=== PATIENT | male | born 1950 | race Caucasian/White ===

== ENCOUNTER 2023-12-21 07:57 | Outpatient (AMB) | payer MEDICARE, SELFPAY ==
--- NOTE | 2023-12-21 08:07 | A.OFFPC_ITS ---
Vital Signs 12/21/23 08:08 Height 5 ft 8 in Weight 164 lb BMI 24.9 BP 120/80 Blood Pressure Location Lt brachial Position Sitting Pulse 48 L Pulse Source Pulse Oximeter Pulse Oximetry (%) 97 Oxygen Delivery Method Room Air Intake Visit Reasons: [employer]ER-Cholesterol Allergies No Known Allergies Allergy (Verified 12/21/23 08:55) Medication List - Last Reconciled 12/21/23 by Leah Nguyen MD rosuvastatin 5 mg PO DAILY sildenafil mg PO Tobacco use date assessed: 12/21/23 Fall risk assessment: No Falls in past year Last assessed Fall Risk: 12/21/23 Dental Screening Dental Screen Date: 12/21/23 Did you have a dental visit in the last 12 months?: Yes Did you have a dental problem in the last 6 months where you did not have access to dental care?: Yes Was dental information given to patient?: Patient has dentist HPI [employer]ENDER-Cholesterol HPI Details Pt presents for RICE [employer]INE [employer]ENDER visit. Past medical history includes hyperlipidemia controlled on Crestor. [facility] Family History (Updated 12/21/23 @ 08:26 by Leah Nguyen MD) Mother S/P CABG x 4 Cancer, Onset Age: 70 Brother Heart attack Social History (Updated 12/21/23 @ 08:24 by Leah Nguyen MD) Household Members Other:: , retired, exercise 5 x week, Housing: House Patient Tobacco Use Status: Never used Tobacco e-Cigarette/Vaping Use: Never Used service: Yes Current occupational status: retired Cognitive needs: No Hearing needs: No Vision needs: Yes Questionnaire PHQ-9 Over the last 2 weeks, how often have you been bothered by any of the following problems? 1. Little interest or pleasure in doing things: not at all 2. Feeling down, depressed, or hopeless: not at all 3. Trouble falling or staying asleep, or sleeping too much: not at all 4. Feeling tired or having little energy: not at all 5. Poor appetite or overeating: not at all 6. Feeling bad about yourself - or that you are a failure or have let yourself or your family down: not at all 7. Trouble concentrating on things, such as reading the newspaper or watching television: not at all 8. Moving or speaking so slowly that other people could have noticed. Or the opposite - being so fidgety or restless that you have been moving around a lot more than usual: not at all 9. Thoughts that you would be better off or of hurting yourself in some way: not at all Total score: 0 Depression Screening Interpretation: Negative Depression Screening Done: Yes 09330 - PHQ-9 Billing: Yes Source: Developed by Drs. Augie Woodson, Genie Burton, Lucas Jain and colleagues, with an educational cristina from [employer]. Thrive Questionnaire Date Thrive assessed: 12/21/23 I am a: Patient What is your living situation today?: I have a steady place to live Within the past 12 months, did the food you bought not last and you didn't have the money to get more?: Never true Within the past 12 months, did you worry whether your food would run out before you got money to buy more?: Never true Do you have trouble paying for medicines?: No Do you have trouble getting transportation to medical appointments?: No Do you have trouble paying your heating and electricity bill?: No Do you have trouble taking care of your child, family member or friend?: No Do you have trouble with day-to-day activities such as bathing, preparing meals, shopping, managing finances, etc.?: No Are you currently unemployed and looking for a job?: No Are you interested in more education?: No Please select the resources that you would like help with: None Currently or been in a relationship where the following occur: No concerns reported THRIVE Score: 0 AUDIT C Alcohol Use Questionnaire (AUDIT-C) 1. How often do you have a drink containing alcohol?: 2-4 times a month 2. How many drinks containing alcohol do you have on a typical day when you are drinking?: 1 or 2 3. How often do you have six or more drinks on one occasion?: Never Total Score: 2 PAM-7 AMB Questionnaire PAM-7 Date PAM - 7 assessed: 12/21/23 Feeling nervous, anxious, or on edge: 0 = Not at all Not being able to stop or control worryin = Not at all Worrying too much about different things: 0 = Not at all Trouble relaxin = Not at all Being so restless that it is hard to sit still: 0 = Not at all Becoming easily annoyed or irritable: 0 = Not at all Feeling afraid as if something awful might happen: 0 = Not at all Total PAM-7 score (0-4 normal; 5-9 mild; 10-14 moderate; 15-21 severe): 0 Source: Developed by Drs. Augie Woodson, Genie Burton, Lucas Jain and colleagues, with an educational cristina from [employer]. Review of Systems Const All systems reviewed & are unremarkable except as noted in HPI and below Eyes Reports no additional complaints ENT Reports no additional complaints Card Reports no additional complaints Resp Reports no additional complaints GI Reports no additional complaints Reports no additional complaints Physical exam (Primary Care) Vital Signs: Last Vital Signs Pulse 48 L 12/21/23 08:08 BP 144/80 H 12/21/23 08:08 Pulse Ox 97 12/21/23 08:08 Oxygen Delivery Method Room Air 12/21/23 08:08 BMI result Body Mass Index 24.9 Tobacco/Smoking Status: Tobacco use Status Tobacco use date assessed 12/21/23 12/21/23 08:11 Patient Tobacco Use Status Never used Tobacco 12/21/23 08:11 e-Cigarette/Vaping Use Never Used 12/21/23 08:11 PHQ-9: PHQ-9 Score PHQ-9: Total score 0 12/21/23 08:11 Depression Screening Interpretation: Negative Thrive Assessment: Date of Thrive Assessment Date Thrive assessed 12/21/23 12/21/23 08:11 Currently or been in a relationship where the following occur: No concerns reported Const General: no acute distress HENMT Head: Yes normal to inspection Ears: TM's normal bilaterally General nose exam: Normal external nose present Face and sinus: Yes normal facial exam Mouth: Normal oral and palatal mucosa present Throat: Yes posterior oropharynx normal Eyes General: appearance normal, both eyes and all related structures Neck Neck: Yes no lymphadenopathy and Yes supple Resp Effort & Inspection: normal respiratory effort Auscultation: clear to auscultation bilaterally Cardio Rhythm: regular rhythm Heart sounds: S1 normal heart sound present and S2 normal heart sound present GI Inspection: Yes normal to inspection Palpation (GI): Soft to palpation Percussion: Yes normal to percussion Auscultation: normal bowel sounds Coding Level of Care Code New Pt Level 3 (61635) Diagnoses Hx of colonoscopy Z98.890 Hyperlipidemia E78.5 Assessment & Plan Assessment & Plan (1) Hx of colonoscopy: Comment: 1 polyp about 15 yrs, 2020, repeat in 5 yrs Code(s): Z98.890 - Other specified postprocedural states Category: Surgical Plan: f/u with GI (2) Hyperlipidemia: Code(s): E78.5 - Hyperlipidemia, unspecified Category: Medical Plan: CONTINUE CRESTOR RETURN FOR PHYSICAL IN 6 MONTHS WITH A FASTING LABS BEFORE Orders: Orders Comprehensive [place]. Panel Fast 6 Months E78.5 - Hyperlipidemia, unspecified, Z98.890 - Other specified postprocedural states Lipid Panel 6 Months E78.5 - Hyperlipidemia, unspecified, Z98.890 - Other specified postprocedural states Complete Blood Count Auto Diff 6 Months E78.5 - Hyperlipidemia, unspecified, Z98.890 - Other specified postprocedural states PSA,Total (Free>4and<10) 6 Months E78.5 - Hyperlipidemia, unspecified, Z98.890 - Other specified postprocedural states UA w Microscopic 6 Months E78.5 - Hyperlipidemia, unspecified, Z98.890 - Other specified postprocedural states
[2023-12-21 08:08] VITALS: BP 120/80; PULSE 48; O2SAT 97; BMI 24.9
== END 2023-12-21 08:39 | disposition home or self-care (01) ==
PROVIDERS: PCP Internal Medicine; Visit Provider Internal Medicine
DX: Z98.890 Other specified postprocedural states (principal); E78.5 Hyperlipidemia, unspecified

== ENCOUNTER → 2023-12-21 07:57 | Outpatient (BNVA) | payer MEDICARE, SELFPAY | PROVIDERS: PCP Internal Medicine; Visit Provider Internal Medicine | DX: E78.5 Hyperlipidemia, unspecified (principal) | CPT/HCPCS: 96127; 99202 ==

== ENCOUNTER 2024-06-19 08:10 | Outpatient (REF) | payer MEDICARE, SELFPAY ==
[2024-06-19 10:09] LABS: MANUAL DIFF FLAG NO
[2024-06-19 10:18] LABS: Basophils Percent Auto 0.5 % (0-2); Eosinophils Absolute Auto 0.2 X10*3/uL (0.0-0.4); Eosinophils Percent Auto 2.4 % (0-4); Hematocrit 51.8 % (42.0-52.0); Hemoglobin 17.5 g/dl (14.0-18.0); Imm Gran Abs Auto 0.02 X10*3/uL (0.00-0.03); Imm Gran Pct Auto 0.3 % (0.0-0.4); Lymphocytes Absolute Auto 1.8 X10*3/uL (1.2-4.9); Lymphocytes Percent Auto 22.9 % (20-40); Mean Corpuscular HGB Conc 33.8 g/dl (31.0-36.0); Mean Corpuscular Hemoglobin 32.2 pg (27.0-33.0); Mean Corpuscular Volume 95.2 fL (80.0-98.0); Monocytes Absolute Auto 0.6 X10*3/uL (0.1-1.2); Monocytes Percent Auto 7.7 % (2-11); Neutrophils Absolute Auto 5.2 x10*3/uL (2.0-8.3); Neutrophils Percent Auto 66.2 % (45-73); Platelet Count 188 X10*3/uL (160-400); Red Blood Count 5.44 X10*6/uL (4.60-5.80); Red Cell Distribution Width 12.1 % (11.0-16.0); White Blood Count 7.9 X10*3/uL (4.8-10.8)
[2024-06-19 10:45] LABS: PSA,Total (Free>4and<10) 0.67 ng/mL (0.00-4.00)
[2024-06-19 10:46] LABS: Alanine Aminotransferase 44 U/L (0-40); Albumin Level 4.3 g/dL (3.5-5.0); Anion Gap 12 (12-20); Aspartate Amino Transferase 28 U/L (5-37); Bilirubin Total 0.6 mg/dL (0.0-1.0); Blood Urea Nitrogen 22 mg/dL (9-16); Calcium 9.6 mg/dL (8.4-10.2); Carbon Dioxide 27 mmol/L (22-29); Chloride 107 mmol/L (96-108); Cholesterol 172 mg/dL (<200); Estimated Glomerular Filt Rate > 60; Glucose Fasting 100 mg/dL (60-99); HDL Cholesterol 48 mg/dL (>40); LDL Cholesterol Calculated 100 mg/dL (<100); Sodium 141 mmol/L (135-145); Total Protein 7.3 g/dL (6.5-8.0); Triglycerides 122 mg/dL (<150)
[2024-06-19 10:55] LABS: Appearance Urine Cloudy; Color Urine Yellow; Glucose Urine UA Negative (Negative); Leukocyte Esterase Urine Negative (Negative); Nitrite Urine Negative (Negative); PH 5.5 (5.0-9.0); Specific Gravity - Urine 1.025 (1.005-1.025); Urine Blood Negative (Negative); Urine Ketones Negative (Negative); Urine Protein Negative (Neg-Trace)
[2024-06-19 11:01] LABS: Bacteria Urine None Seen (None Seen); Hyaline Casts Urine 0-2 /LPF (0-2); RBC Urine 0-2 /HPF (0-2); Squamous Epithelial Cell Urine 0-2 /HPF (0-2); WBC Urine 0-5 /HPF (0-5)
[2024-06-19 11:09] LABS: Alkaline Phosphatase 60 U/L (39-117)
== END 2024-06-19 08:11 | disposition home or self-care (01) ==
LOC: HO.HMGCLDS 08:10
PROVIDERS: PCP Internal Medicine; Visit Provider Internal Medicine
DX: Z98.890 Other specified postprocedural states (principal); E78.5 Hyperlipidemia, unspecified
CPT/HCPCS: 36415; 80053; 80061; 81001; 84153; 85025

== ENCOUNTER 2024-06-27 09:53 | Outpatient (AMB) | payer MEDICARE, SELFPAY ==
[2024-06-27 10:19] VITALS: BP 124/70; PULSE 51; RESP 16; TEMP 37.2; O2SAT 97; BMI 25.2
--- NOTE | 2024-06-27 10:19 | MHC.PC.OV ---
Vital Signs 06/27/24 10:19 Height 5 ft 8 in Weight 166 lb BMI 25.2 BP 124/70 Blood Pressure Location Rt brachial Position Sitting Respiration 16 Pulse 51 Pulse Source Pulse Oximeter Temp 98.9 F Temp Source Oral Pulse Oximetry (%) 97 Oxygen Delivery Method Room Air Intake Visit Reasons: Annual PE Intake Note: Pt is here today for PE. Allergies No Known Allergies Allergy (Verified 06/27/24 10:21) Medication List - Last Reconciled 06/27/24 by Leah Nguyen MD betamethasone valerate 0.1% 1 appl topical DAILY rosuvastatin 5 mg PO DAILY sildenafil mg PO Tobacco use date assessed: 06/27/24 Fall risk assessment: No Falls in past year Last assessed Fall Risk: 06/27/24 Dental Screening Dental Screen Date: 06/27/24 Did you have a dental visit in the last 12 months?: Yes Did you have a dental problem in the last 6 months where you did not have access to dental care?: No Was dental information given to patient?: Patient has dentist HPI Annual PE HPI Details Patient presents for PE. PFSH Surgical History No pertinent past surgical history Family History Mother S/P CABG x 4 Cancer, Onset Age: 70 Brother Heart attack Social History Household Members Other:: , retired, exercise 5 x week, Housing: House Patient Tobacco Use Status: Never used Tobacco e-Cigarette/Vaping Use: Never Used service: Yes Current occupational status: retired Cognitive needs: No Hearing needs: No Vision needs: Yes Questionnaire PHQ-9 Over the last 2 weeks, how often have you been bothered by any of the following problems? 1. Little interest or pleasure in doing things: not at all 2. Feeling down, depressed, or hopeless: not at all 3. Trouble falling or staying asleep, or sleeping too much: not at all 4. Feeling tired or having little energy: not at all 5. Poor appetite or overeating: not at all 6. Feeling bad about yourself - or that you are a failure or have let yourself or your family down: not at all 7. Trouble concentrating on things, such as reading the newspaper or watching television: not at all 8. Moving or speaking so slowly that other people could have noticed. Or the opposite - being so fidgety or restless that you have been moving around a lot more than usual: not at all 9. Thoughts that you would be better off or of hurting yourself in some way: not at all Total score: 0 Depression Screening Interpretation: Negative Depression Screening Done: Yes 73276 - PHQ-9 Billing: Yes Source: Developed by Drs. Augie Woodson, Genie Burton, Lucas Jain and colleagues, with an educational cristina from [employer]. Thrive Questionnaire Date Thrive assessed: 06/27/24 I am a: Patient What is your living situation today?: I have a steady place to live Within the past 12 months, did the food you bought not last and you didn't have the money to get more?: Never true Within the past 12 months, did you worry whether your food would run out before you got money to buy more?: Never true Do you have trouble paying for medicines?: No Do you have trouble getting transportation to medical appointments?: No Do you have trouble paying your heating and electricity bill?: No Do you have trouble taking care of your child, family member or friend?: No Do you have trouble with day-to-day activities such as bathing, preparing meals, shopping, managing finances, etc.?: No Are you currently unemployed and looking for a job?: No Are you interested in more education?: No Please select the resources that you would like help with: None Currently or been in a relationship where the following occur: No concerns reported THRIVE Score: 0 AUDIT C Alcohol Use Questionnaire (AUDIT-C) 1. How often do you have a drink containing alcohol?: 2-4 times a month 2. How many drinks containing alcohol do you have on a typical day when you are drinking?: 1 or 2 3. How often do you have six or more drinks on one occasion?: Never Total Score: 2 PAM-7 AMB Questionnaire PAM-7 Date PAM - 7 assessed: 06/27/24 Feeling nervous, anxious, or on edge: 0 = Not at all Not being able to stop or control worryin = Not at all Worrying too much about different things: 0 = Not at all Trouble relaxin = Not at all Being so restless that it is hard to sit still: 0 = Not at all Becoming easily annoyed or irritable: 0 = Not at all Feeling afraid as if something awful might happen: 0 = Not at all Total PAM-7 score (0-4 normal; 5-9 mild; 10-14 moderate; 15-21 severe): 0 Source: Developed by Drs. Augie Woodson, Genie Burton, Lucas Jain and colleagues, with an educational cristina from [employer]. PAM-7 Assessment Billing PAM-7 Assessment Tool: PAM-7 Assessment 96567 Review of Systems Const All systems reviewed & are unremarkable except as noted in HPI and below Reports no additional complaints Eyes Reports no additional complaints ENT Reports no additional complaints Card Reports no additional complaints Resp Reports no additional complaints GI Reports no additional complaints Physical exam (Primary Care) Vital Signs: Last Vital Signs Temp 98.9 F 06/27/24 10:19 Pulse 51 06/27/24 10:19 Resp 16 06/27/24 10:19 BP 124/70 06/27/24 10:19 Pulse Ox 97 06/27/24 10:19 Oxygen Delivery Method Room Air 06/27/24 10:19 BMI result Body Mass Index 25.2 Tobacco/Smoking Status: Tobacco use Status Tobacco use date assessed 06/27/24 06/27/24 10:26 Patient Tobacco Use Status Never used Tobacco 06/27/24 10:26 e-Cigarette/Vaping Use Never Used 06/27/24 10:19 PHQ-9: PHQ-9 Score PHQ-9: Total score 0 06/27/24 10:52 Depression Screening Interpretation: Negative Thrive Assessment: Date of Thrive Assessment Date Thrive assessed 06/27/24 06/27/24 10:26 Currently or been in a relationship where the following occur: No concerns reported Const General: no acute distress HENMT Head: Yes normal to inspection Ears: hearing grossly normal bilaterally Face and sinus: Yes normal facial exam Mouth: Normal oral and palatal mucosa present Throat: Yes posterior oropharynx normal Eyes General: appearance normal, both eyes and all related structures Neck Neck: Yes no lymphadenopathy and Yes supple Resp Effort & Inspection: normal respiratory effort Auscultation: clear to auscultation bilaterally Cardio Rhythm: regular rhythm Heart sounds: S1 normal heart sound present and S2 normal heart sound present GI Inspection: Yes normal to inspection Palpation (GI): Soft to palpation Percussion: Yes normal to percussion Auscultation: normal bowel sounds Immunizations pneumoc 20-martha conj-dip cr(PF) 0.5 mL IM syringe Performing Provider: Leah Nguyen MD Performing Location: [facility] [place] [facility] Administered by: HANSA Camacho on 06/27/24 11:03 Dose Route Admin Location Dispensed Lot Number Expiration Date NDC Form [employer] 0.5 mL IM Left Deltoid 0.5 mL [id number] 05/02/25 7200-8187-58 BBspace/MPV VIS Given Date VIS Provided VIS Publication Date 06/27/24 Single Vaccine 21 Eligibility Eligibility Date Funding Source Not [facility] Eligible 06/27/24 Private Coding Level of Care Code Est Pt Prev Care >65y(06552) Diagnoses Hyperlipidemia E78.5 Hx of colonoscopy Z98.890 Annual physical exam Z00.00 Additional Codes PAM-7 Assessment Billing - PAM-7 Assessment Tool: PAM-7 Assessment 23626 ([id number]) PHQ-9 - 75410 - PHQ-9 Billing: Yes ([id number]) Assessment & Plan Assessment & Plan (1) Hyperlipidemia: Code(s): E78.5 - Hyperlipidemia, unspecified Category: Medical Plan: cont statin (2) Hx of colonoscopy: Comment: 1 polyp about 15 yrs, 2020, repeat in 5 yrs Code(s): Z98.890 - Other specified postprocedural states Category: Surgical Plan: f/u with GI for repeat colonoscopy (3) Annual physical exam: Code(s): Z00.00 - Encounter for general adult medical examination without abnormal findings Category: Medical Plan: well balanced diet, regular exercise, repeat LFTs in 1 month Orders: Orders UA w Microscopic 1 Year E78.5 - Hyperlipidemia, unspecified, Z00.00 - Encounter for general adult medical examination without abnormal findings Liver Panel 1 Month E78.5 - Hyperlipidemia, unspecified Pneumococcal 20 Immunization Today Z23 - Encounter for immunization Comprehensive [place]. Panel Fast 1 Year E78.5 - Hyperlipidemia, unspecified, Z00.00 - Encounter for general adult medical examination without abnormal findings Complete Blood Count Auto Diff 1 Year E78.5 - Hyperlipidemia, unspecified, Z00.00 - Encounter for general adult medical examination without abnormal findings Lipid Panel 1 Year E78.5 - Hyperlipidemia, unspecified, Z00.00 - Encounter for general adult medical examination without abnormal findings PSA,Total (Free>4and<10) 1 Year E78.5 - Hyperlipidemia, unspecified, Z00.00 - Encounter for general adult medical examination without abnormal findings
== END 2024-06-27 11:11 | disposition home or self-care (01) ==
LOC: HO.HMCC 09:54
PROVIDERS: PCP Internal Medicine; Visit Provider Internal Medicine
DX: E78.5 Hyperlipidemia, unspecified (principal); Z98.890 Other specified postprocedural states; Z00.00 Encounter for general adult medical examination without abnormal findings; Z23 Encounter for immunization

== ENCOUNTER → 2024-06-27 09:53 | Outpatient (BNVA) | payer MEDICARE, SELFPAY | PROVIDERS: PCP Internal Medicine; Visit Provider Internal Medicine | DX: Z00.00 Encounter for general adult medical examination without abnormal findings (principal); E78.5 Hyperlipidemia, unspecified; Z23 Encounter for immunization; Z98.890 Other specified postprocedural states | CPT/HCPCS: 90471; 90677; 96127; 99397 ==

== ENCOUNTER 2024-08-22 12:53 | Outpatient (REF) | payer MEDICARE, SELFPAY ==
[2024-08-22 16:31] LABS: Alanine Aminotransferase 37 U/L (0-40); Albumin Level 4.4 g/dL (3.5-5.0); Alkaline Phosphatase 60 U/L (39-117); Aspartate Amino Transferase 28 U/L (5-37); Bilirubin Direct 0.2 mg/dL (0.0-0.5); Bilirubin Total 0.5 mg/dL (0.0-1.0)
== END 2024-08-22 12:54 | disposition home or self-care (01) ==
LOC: HO.HMGCLDS 12:53
PROVIDERS: PCP Internal Medicine; Visit Provider Internal Medicine
DX: E78.5 Hyperlipidemia, unspecified (principal)
CPT/HCPCS: 36415; 80076